=== PATIENT | female | born 1980 | race Caucasian/White ===

== ENCOUNTER 2017-11-10 14:41 | Emergency (ER) | payer MEDICAID ==
[2017-11-10] MEDS: ACETAMINOPHEN 325 MG TAB PO (15:42)
[2017-11-10 15:49] LABS: URINE BLOOD (Dip) POC Trace-intact (NEGATIVE); URINE GLUCOSE (Dip) POC Negative (NEGATIVE); URINE KETONES (Dip) POC 1+ (NEGATIVE); URINE LEUKOCYTE EST (Dip) POC Negative (NEGATIVE); URINE NITRITE (Dip) POC Negative (NEGATIVE); URINE TOTAL PROTEIN POC Negative (NEGATIVE)
== END 2017-11-10 16:48 | disposition home or self-care (01) ==
LOC: FTE 14:41
DX: O99.511 Diseases of the respiratory system complicating pregnancy, first trimester (principal); R05 Cough; J10.1 Influenza due to other identified influenza virus with other respiratory manifestations; Z3A.13 13 weeks gestation of pregnancy
CPT/HCPCS: 76805; 81003; 87400; 99284-25

== ENCOUNTER 2018-04-03 18:54 | Outpatient (CLI) | payer MEDICAID ==
[2018-04-03 20:04] LABS: ADD MAN DIFF? NO
[2018-04-03 20:09] LABS: WHITE BLOOD COUNT 9.3 10^3/ul (4.8-10.8)
[2018-04-03 20:10] LABS: BASOPHILS % 0.2 % (0.0-2.0); EOSINOPHILS # 0.1 10^3/ul (0.0-0.5); HEMATOCRIT 36.7 % (37.0-47.0); HEMOGLOBIN 12.5 g/dl (12.0-16.0); LYMPHOCYTES # 2.1 10^3/ul (0.8-2.9); LYMPHOCYTES % 22.5 % (15.0-51.0); MEAN CORPUSCULAR HEMOGLOBIN 30.7 pg (29.0-33.0); MEAN CORPUSCULAR HGB CONC 34.1 g/dl (32.0-37.0); MEAN CORPUSCULAR VOLUME 90.2 fl (82.0-101.0); MEAN PLATELET VOLUME 12.5 fl (7.4-10.4); MONOCYTE # 0.7 10^3/ul (0.3-0.9); MONOCYTES % 7.1 % (0.0-11.0); NEUTROPHIL # 6.4 10^3/ul (1.6-7.5); NEUTROPHILS % 68.9 % (39.0-77.0); PLATELET COUNT 134 10^3/UL (140-415); RED BLOOD COUNT 4.07 10^6/ul (4.20-5.40); RED CELL DISTRIBUTION WIDTH 12.8 % (11.5-14.5)
[2018-04-03 20:24] LABS: INR 0.99; PROTIME 13.2 Sec (11.9-14.9)
[2018-04-03 20:25] LABS: PARTIAL THROMBOPLASTIN TIME 29.1 Sec (25.0-35.0)
[2018-04-03 20:32] LABS: ADD UMIC YES; UR ASCORBIC ACID NEGATIVE (NEGATIVE); UR BACTERIA FEW /HPF (NONE SEEN); UR BILIRUBIN (Dip) NEGATIVE (NEGATIVE); UR BLOOD (Dip) 1+ mg/dL (NEGATIVE); UR CLARITY CLEAR (CLEAR); UR COLOR YELLOW (YELLOW); UR GLUCOSE (Dip) NEGATIVE (NEGATIVE); UR KETONES (Dip) NEGATIVE (NEGATIVE); UR LEUKOCYTE ESTERASE (Dip) TRACE Leu/ul (NEGATIVE); UR MUCUS FEW /HPF (NONE SEEN); UR NITRITE (Dip) NEGATIVE (NEGATIVE); UR RBC 1 /HPF (0-5); UR SQUAMOUS EPITHELIAL CELL FEW /HPF (FEW); UR TOTAL PROTEIN (Dip) NEGATIVE (NEGATIVE); UR UROBILINOGEN (Dip) NEGATIVE (NEGATIVE); UR WBC 0 /HPF (0-5)
[2018-04-03 20:33] LABS: ALANINE AMINOTRANSFERASE 22 IU/L (13-69); ALBUMIN/GLOBULIN RATIO 0.93; ALKALINE PHOSPHATASE 156 IU/L (42-121); ANION GAP 14 (8-16); ASPARTATE AMINO TRANSFERASE 19 IU/L (15-46); BILIRUBIN,INDIRECT 0.4 mg/dl (0-1.1); BILIRUBIN,TOTAL 0.4 mg/dl (0.2-1.3); BLOOD UREA NITROGEN 9 mg/dl (7-20); CALCIUM 9.2 mg/dl (8.4-10.2); CARBON DIOXIDE 21 mmol/L (21-31); CHLORIDE 109 mmol/L (97-110); CREATININE 0.41 mg/dl (0.44-1.00); GLUCOSE 96 mg/dl (70-220); POTASSIUM 3.5 mmol/L (3.5-5.1); SODIUM 140 mmol/L (135-144); TOTAL PROTEIN 6.2 g/dl (6.1-8.1); URIC ACID 4.3 mg/dl (3.1-7.9)
[2018-04-03] MEDS: AL HYDROX/MG HYDROX/SIMETH 30 ML CUP PO (20:44)
[2018-04-03] MEDS: FAMOTIDINE 20 MG TAB PO (20:46)
== END 2018-04-03 21:34 | disposition home or self-care (01) ==
LOC: OBT 18:54 → L-D 18:55 → OBT 21:34
DX: O26.893 Other specified pregnancy related conditions, third trimester (principal); Z3A.33 33 weeks gestation of pregnancy; R10.11 Right upper quadrant pain
CPT/HCPCS: 76705; 80053; 81001; 84560; 85025; 85610; 85730

== ENCOUNTER 2018-04-23 13:01 | Outpatient (CLI) | payer MEDICAID | END 2018-04-23 16:35 | disposition home or self-care (01) | LOC: OBT 13:01 → L-D 13:01 → OBT 16:35 | DX: O24.419 Gestational diabetes mellitus in pregnancy, unspecified control (principal); O09.523 Supervision of elderly multigravida, third trimester; Z3A.36 36 weeks gestation of pregnancy | CPT/HCPCS: 76818 ==

== ENCOUNTER 2018-05-17 16:00 | Inpatient (IN) | payer MEDICAID ==
[2018-05-17] MEDS ORDERED: OXYTOCIN 30 UNITS/LR 500 ML IV (17:30)
[2018-05-17] MEDS ORDERED: METHYLERGONOVINE 0.2 MG INJ IM (17:30)
[2018-05-17] MEDS ORDERED: MISOPROSTOL 200 MCG TAB PR (17:30)
[2018-05-17] MEDS ORDERED: IBUPROFEN 600 MG TAB PO (17:30)
[2018-05-17] MEDS ORDERED: LIDOCAINE 1% (MPF) 30 ML INJ INJ (17:30)
[2018-05-17] MEDS ORDERED: CARBOPROST 250 MCG INJ IM (17:30)
[2018-05-17] MEDS ORDERED: BUTORPHANOL 2 MG INJ IV (17:30)
[2018-05-17] MEDS: LACTATED RINGER'S 1,000 ML IV* (18:19)
[2018-05-17 18:41] LABS: ADD MAN DIFF? NO
[2018-05-17 18:42] LABS: WHITE BLOOD COUNT 8.5 10^3/ul (4.8-10.8)
[2018-05-17 18:42] LABS: BASOPHILS % 0.1 % (0.0-2.0); EOSINOPHILS % 0.4 % (0.0-7.0); HEMATOCRIT 35.6 % (37.0-47.0); HEMOGLOBIN 12.2 g/dl (12.0-16.0); LYMPHOCYTES # 2.1 10^3/ul (0.8-2.9); LYMPHOCYTES % 25.2 % (15.0-51.0); MEAN CORPUSCULAR HEMOGLOBIN 31.2 pg (29.0-33.0); MEAN CORPUSCULAR HGB CONC 34.3 g/dl (32.0-37.0); MEAN PLATELET VOLUME 12.7 fl (7.4-10.4); MONOCYTE # 0.5 10^3/ul (0.3-0.9); MONOCYTES % 6.1 % (0.0-11.0); NEUTROPHIL # 5.8 10^3/ul (1.6-7.5); NEUTROPHILS % 67.8 % (39.0-77.0); PLATELET COUNT 122 10^3/UL (140-415); RED BLOOD COUNT 3.91 10^6/ul (4.20-5.40); RED CELL DISTRIBUTION WIDTH 13.2 % (11.5-14.5)
[2018-05-17 19:02] LABS: ALANINE AMINOTRANSFERASE 38 IU/L (13-69); ALBUMIN 3.1 g/dl (3.3-4.9); ALBUMIN/GLOBULIN RATIO 1.03; ALKALINE PHOSPHATASE 186 IU/L (42-121); ANION GAP 9 (8-16); ASPARTATE AMINO TRANSFERASE 33 IU/L (15-46); BILIRUBIN,INDIRECT 0.4 mg/dl (0-1.1); BILIRUBIN,TOTAL 0.4 mg/dl (0.2-1.3); BLOOD UREA NITROGEN 10 mg/dl (7-20); CALCIUM 8.9 mg/dl (8.4-10.2); CARBON DIOXIDE 20 mmol/L (21-31); CHLORIDE 112 mmol/L (97-110); CREATININE 0.54 mg/dl (0.44-1.00); GLUCOSE 91 mg/dl (70-220); POTASSIUM 3.7 mmol/L (3.5-5.1); SODIUM 137 mmol/L (135-144); TOTAL PROTEIN 6.1 g/dl (6.1-8.1)
[2018-05-17 19:07] LABS: PARTIAL THROMBOPLASTIN TIME 27.8 Sec (25.0-35.0)
[2018-05-17 19:32] LABS: HEPATITIS B SURFACE ANTIGEN NEGATIVE (NEGATIVE)
[2018-05-17 19:45] LABS: ADD UMIC YES; UR ASCORBIC ACID NEGATIVE (NEGATIVE); UR BACTERIA FEW /HPF (NONE SEEN); UR BILIRUBIN (Dip) NEGATIVE (NEGATIVE); UR BLOOD (Dip) NEGATIVE (NEGATIVE); UR CLARITY CLEAR (CLEAR); UR COLOR STRAW (YELLOW); UR GLUCOSE (Dip) NEGATIVE (NEGATIVE); UR KETONES (Dip) NEGATIVE (NEGATIVE); UR LEUKOCYTE ESTERASE (Dip) TRACE Leu/ul (NEGATIVE); UR NITRITE (Dip) NEGATIVE (NEGATIVE); UR RBC 0 /HPF (0-5); UR SPECIFIC GRAVITY (Dip) 1.008 (1.003-1.030); UR TOTAL PROTEIN (Dip) NEGATIVE (NEGATIVE); UR UROBILINOGEN (Dip) NEGATIVE (NEGATIVE); UR WBC 1 /HPF (0-5)
[2018-05-17 19:56] LABS: INR 0.97
[2018-05-17] MEDS: OXYTOCIN 30 UNITS/LR 500 ML IV (20:29)
[2018-05-18] MEDS: LACTATED RINGER'S 1,000 ML IV* ×3 (00:45→09:47)
[2018-05-18] MEDS ORDERED: FENTAnyl 2MCG/ML-ROPIV 0.2% 100 ML (07:48)
[2018-05-18] MEDS ORDERED: NALOXONE (0.4 MG/ML) INJ IV (09:30)
[2018-05-18] MEDS ORDERED: FENTAnyl 2MCG/ML-ROPIV 0.2% 100 ML BAG EPI (09:30)
[2018-05-18] MEDS: DEXTROSE 5%-LR 1,000 ML IV (10:29)
[2018-05-18] MEDS: OXYTOCIN 30 UNITS/LR 500 ML IV ×2 (11:47→16:38)
[2018-05-18] MEDS ORDERED: DIBUCAINE 1% 30 GM OINT PR (13:30)
[2018-05-18] MEDS ORDERED: ONDANSETRON 4 MG INJ IV (13:30)
[2018-05-18] MEDS ORDERED: ACETAMINOPHEN 325 MG TAB PO (13:30)
[2018-05-18] MEDS ORDERED: HYDROCODONE/APAP (5/325) TAB PO ×2 (13:30)
[2018-05-18] MEDS ORDERED: OXYCODONE/ASPIRIN (4.88/325) TAB PO ×2 (13:30)
[2018-05-18] MEDS: BENZOCAINE 20% 56 ML SPRAY TOP (17:52)
[2018-05-18] MEDS: WITCH HAZEL/GLYCERIN PAD PR (17:52)
[2018-05-18] MEDS: LANOLIN 7 GM TUBE TOP (17:52)
[2018-05-18] MEDS: IBUPROFEN 600 MG TAB PO (17:52)
[2018-05-18] MEDS: SENNA/DOCUSATE NA (8.6MG/50MG) TAB PO (21:35)
[2018-05-18 21:40] LABS: RAPID PLASMA REAGIN NONREACTIVE (NR)
[2018-05-19] MEDS: IBUPROFEN 600 MG TAB PO ×4 (00:34→18:00)
[2018-05-19] MEDS: SENNA/DOCUSATE NA (8.6MG/50MG) TAB PO (08:51)
[2018-05-19 08:58] LABS: ADD MAN DIFF? NO
[2018-05-19 09:15] LABS: ABNORMAL IP MESSAGE 1; BASOPHILS % 0.2 % (0.0-2.0); EOSINOPHILS # 0.1 10^3/ul (0.0-0.5); EOSINOPHILS % 0.6 % (0.0-7.0); HEMATOCRIT 35.5 % (37.0-47.0); HEMOGLOBIN 11.9 g/dl (12.0-16.0); LYMPHOCYTES # 2.1 10^3/ul (0.8-2.9); LYMPHOCYTES % 26.1 % (15.0-51.0); MEAN CORPUSCULAR HEMOGLOBIN 31.1 pg (29.0-33.0); MEAN CORPUSCULAR HGB CONC 33.5 g/dl (32.0-37.0); MEAN CORPUSCULAR VOLUME 92.7 fl (82.0-101.0); MEAN PLATELET VOLUME 13.1 fl (7.4-10.4); MONOCYTE # 0.4 10^3/ul (0.3-0.9); NEUTROPHIL # 5.4 10^3/ul (1.6-7.5); NEUTROPHILS % 67.6 % (39.0-77.0); PLATELET COUNT 116 10^3/UL (140-415); RED BLOOD COUNT 3.83 10^6/ul (4.20-5.40); RED CELL DISTRIBUTION WIDTH 13.3 % (11.5-14.5)
[2018-05-19 09:17] LABS: POSITIVE DIFF @See below
[2018-05-20] MEDS: SENNA/DOCUSATE NA (8.6MG/50MG) TAB PO ×2 (00:17→11:13)
[2018-05-20] MEDS: IBUPROFEN 600 MG TAB PO ×3 (00:18→11:14)
[2018-05-20] MEDS: MEASLES,MUMPS,RUBELLA VACCINE INJ SC* (09:00)
== END 2018-05-20 12:15 | disposition home or self-care (01) | DRG 775 ==
LOC: L-D 16:00 → PP1 05-18 13:36
PROC: 3E033VJ Introduction of Other Hormone into Peripheral Vein, Percutaneous Approach (ICD-10-PCS; 2018-05-17 16:00)
DX: O24.420 Gestational diabetes mellitus in childbirth, diet controlled (principal); O69.81X0 Labor and delivery complicated by cord around neck, without compression, not applicable or unspecified; O70.0 First degree perineal laceration during delivery; Z3A.40 40 weeks gestation of pregnancy; Z37.0 Single live birth
CPT/HCPCS: 62319; 76815; 76818; 80053; 81001; 82962; 85025; 85610; 85730; 86592; 86850; 86900; 86901; 87340; 99464